=== PATIENT | male | born 1945 | race Caucasian/White ===

== ENCOUNTER 2017-01-17 14:07 | Day surgery (SDC) | payer OTHER ==
[~2017-01-17 14:07] MED LIST: ASPI325T PO; CARV3.125 PO; EFFIENT PO; ISOS30TA3 PO; OMEP20CA5 PO; ZOCO40TA PO
[2017-01-17 14:25] VITALS: BP 108/54; PULSE 64; RESP 18; TEMP 98.1; O2SAT 96
--- NOTE | 2017-01-17 16:25 | RADRPT ---
EXAM DATE/TIME: 01/17/2017 00:00 [facility] COMPARISON : No previous studies available for comparison. INDICATIONS : CONSULT FOR ENDO AAA REPAIR OBJECTIVE: Temperature: 97.9 Heart Rate: 76 Blood Pressure: 104/50 Respiratory: 18 Oximetry: 94 PNEUMONIA VACCINE: YES HISTORY OF PRESENT ILLNESS: Known abdominal aortic aneurysm, now measuring 5.5 cm on most recent imaging. PAST MEDICAL HISTORY : 1. Cardiovascular disease. 2. Arthritis. 3. Aneurysm, abdominal. PAST SURGICAL HISTORY : 1. CABG 2. Coronary artery stent. 3. KNEE SURGERY BILATERAL 4. TONSILLECTOMY SOCIAL HISTORY : Social alcohol use. Tobacco;former. ALLERGIES: 1. NKDA MEDICATIONS: 1. Coreg (Carvedilol) 3.125 mg b.i.d. 2. Prilosec (Omeprazole) 20 mg q.d. [id number] mg q.d. 4. Plavix (Clopidogrel Bisulfate) 75 mg q.d. 5. Prinivil (Lisinopril)20 mg q.d. 6. ISOSORBIDE 30 mg q.d. 7. ATORVASTATIN 40 mg q.d. IMAGING STUDIES: CTA examination of the abdomen and pelvis from [facility] imaging dated January 10, 2017 reveals a 5.5 cm infrarenal abdominal aortic aneurysm which terminates at the aortic bifurcation. The configuratio n does appear amenable to endovascular repair ASSESSMENT: The patient appears to be a good candidate for endovascular aortic aneurysm repair which now appears indicated by aneurysm size. The patient is asymptomatic with no signs of leak or rupture, as such thi s can be accomplished on an elective basis and ideally following cardiac clearance. PLAN: I discussed the case with Dr. Sher who plans to see the patient in the near future for clinical evalu ation and stress testing for risk stratification. We will plan to schedule for endovascular aortic an eurysm repair after that has been accomplished. Thank you Dr. Kay, for the opportunity to assist you in the care of this pleasant gentleman. Reza Swan MD on January 17, 2017 at 16:16 Board Certified Radiologist. This report was verified electronically.
== END 2017-01-17 15:05 | disposition home or self-care (01) ==
LOC: HROP 14:07 → HRIP 14:10 → HROP 15:05
PROVIDERS: ATTEND Radiology Body Imaging
DX: I71.3 Abdominal aortic aneurysm, ruptured (principal)

== ENCOUNTER 2017-02-28 10:47 | Inpatient (IN) | payer OTHER, MEDICARE ==
[~2017-02-28] VITALS: Ht 174 cm; Wt 95.1 kg
[2017-02-28 11:09] VITALS: BP 125/82; PULSE 67; RESP 20; TEMP 97.7; O2SAT 93
[2017-02-28] MEDS ORDERED: CLOP75TA PO (11:39)
[2017-02-28] MEDS ORDERED: ASPI81TA81 (11:40)
[2017-02-28] MEDS ORDERED: ASPI1TAB69 PO (11:40)
[2017-02-28] MEDS ORDERED: OMEP20TA PO (11:42)
[2017-02-28] MEDS ORDERED: SIMV40TA PO (11:42)
[2017-02-28] MEDS ORDERED: ISOS30TA3 PO (11:42)
[2017-02-28] MEDS ORDERED: CARV3.12 PO (11:42)
[2017-02-28] MEDS ORDERED: INSULIN HUMAN REGULAR 1,000 UNITS/10 ML VIAL SQ PRN (12:45)
[2017-02-28] MEDS ORDERED: POVIDONE IODINE 5% (ANTISEPSIS KIT) 4 APPLICATIONS EACH NARE PRN (12:45)
[2017-02-28] MEDS ORDERED: CHLORHEXIDINE GLUCONATE 2 % 1 PACK (2 CLOTHS) TOPICAL PRN (12:45)
[2017-02-28] MEDS ORDERED: METOPROLOL TARTRATE 25 MG TAB PO PRN (12:45)
[2017-02-28] MEDS ORDERED: LACTATED RINGER'S 1000 ML IV PRN (12:45)
[2017-02-28] MEDS ORDERED: SODIUM CHLORID 0.9% 500 ML IV PRN (12:45)
[2017-02-28] MEDS ORDERED: ceFAZolin 2 GM PREMIX 50 ML ONE (15:19)
[2017-02-28] MEDS ORDERED: HEPARIN SODIUM - IV 10,000 UNITS/10 ML VIAL ONE (15:30)
[2017-02-28] MEDS ORDERED: IODIXANOL 320 MG/ML 50 ML VIAL (for RAD SPEC) I-ARTERIAL ONE (16:53)
[2017-02-28] MEDS ORDERED: fentaNYL CITRATE 250 MCG/5 ML AMP ONE (17:08)
[2017-02-28] MEDS ORDERED: SODIUM CHLOR 0.9% 1000 ML INJ 1,000 ML IV SCH (17:20)
--- NOTE | 2017-02-28 17:24 | PD.RAD ---
Post Procedure Progress Note Pre Procedure Diagnosis: (1) AAA (abdominal aortic aneurysm) Post Procedure Diagnosis: (1) AAA (abdominal aortic aneurysm) Procedure Date: February 28, 2017 Supervising Radiologist: Reza Swan Assisting Radiologist: Aron Reed MD Proceduralist/Assist: Sugey Steel, RT(R), Nalini Trujillo RT(R)() Estimated blood loss: 30 ml Anesthesia: General Plan of Activity Patient to Unit: PACU Patient Condition: Good See PACS Report for procedural detail/treatment Vascular-Arterial Procedure Procedure 1 Procedure(s): Endovascular AAA Repair Access Access Site(s): Bilateral Femoral Artery Closure Site(s): Bilateral vascular closure device Reza Swan MD February 28, 2017 17:24
[2017-02-28] MEDS ORDERED: ACETAMINOPHEN 325 MG TAB PO PRN (17:30)
[2017-02-28] MEDS ORDERED: DO NOT ADM ANY ANTICOAGULANT DRUGS PRN (17:45)
--- NOTE | 2017-02-28 17:53 | PD.CONS ---
HPI Service [facility] Consult Requested By Primary Care Physician Ramakrishna Kay MD Diagnoses: Past Family Social History Allergies: Coded Allergies: No Known Allergies (Verified , 02/28/17) Physical Exam Vital Signs Vital Signs Date Time Temp Pulse Resp B/P Pulse Ox O2 Delivery O2 Flow Rate FiO2 02/28/17 17:00 96.2 55 14 137/55 99 Simple Mask 8 132/64 02/28/17 11:09 97.7 67 20 125/82 93 Laboratory Laboratory Tests Test 02/28/17 02/28/17 12:00 13:25 Blood Type B POSITIVE B POSITIVE Antibody Screen NEGATIVE Blood Bank Comment A/P Assessment and Plan dictated, [id number] labs in Sruthi Lucas February 28, 2017 17:53
--- NOTE | 2017-02-28 18:24 | RADRPT ---
EXAM DATE/TIME: 02/28/2017 15:01 [facility] COMPARISON: No previous studies available for comparison. INDICATIONS : patient with history of Abdominal aortic aneurysm. MEDICAL HISTORY : 1. AAA 2. CAD 3. OH 4. Carotid stenosis 5. HTN 6. Asthma 7. Arthritis 8. Barretts esophagus SURGICAL HISTORY : 1. CABG 2. Coronary stents 3. retina repair. ENCOUNTER: Initial ACUITY: 1 month PAIN SCORE: 0/10 FLUORO TIME: 26.3 minutes IMAGE SERIES: 8 ACCESS SITE: Bilateral Femoral artery CONTRAST: 200 cc Visipaque (iodixanol) MEDICATION(S): 1.) 2 g cefazolin (Ancef) IV 2.) 6500 units Heparin IV Vancomycin within 2 hrs of procedure, Ancef (or alternative) within 1 hr of procedure. DEVICE(S): 1.) Abdominal aorta 28 x16 x166 Endurant II abdominal trunk ipsilateral stent graft (main body) 2.) Left common iliac artery 16 x 16 x156 Endurant II contralateral iliac stent graft 3.) Bilateral common femoral artery Perclose x4 Anesthesia and pain control was provided by the Anesthesia department. PROCEDURE : 1. Ultrasound-guidance for bilateral common femoral arterial access. 2. Nonselective bilateral aortic catheterization. 3. Fluoroscopically guided endovascular aortic aneurysm repair. 4. Radiologic supervision and interpretation for Endovascular AAA repair. 5. Bilateral common femoral arteriography prior to closure device placement. 6. Bilateral common femoral arteriotomy closure. 7. selective catheterization, accessory right renal artery 8. Accessory right renal arteriography The patient was placed supine on the angiography table. General endotracheal anesthesia was administ ered by department of anesthesia representatives. The groins were prepped in sterile fashion. Full sterile technique was used, including cap, mask, sterile gloves and gown and a large sterile sheet. Hand hygiene and 2% chlorhexidine and/or betadine/alcohol prep was utilized per protocol for cutaneou s antisepsis. Angiograph of both femoral arteries was performed to evaluate for closure device place ment. 7 Azeri sheaths were placed. Stiff 0.035 inch guidewires were introduced and positioned in t he descending thoracic aorta and their position marked on the procedure table. The a 4 Azeri catheter was introduced and used to select an accessory right renal artery to the lowe r pole of the right kidney. This vessel arises from the aneurysmal portion of the aorta at about the L4 vertebral body level. The vessel was found to be quite small with a stenotic origin from the aorta and prominent proximal angulation. Blood flow provided to a very small portion of the right kidney. The vessel could not be catheterized in a stable enough fashion to allow embolization, however it is felt that this vessel will occlude spontaneously after coverage with the endograft A marking Omni flush catheter was introduced from the left and positioned in the upper abdominal aort a. From the right, the prescribed main body component was inserted and manipulated without difficult y up to the level the renal arteries. Magnification subtraction arteriography was then performed to olivia the position of the lowest renal artery. The trunk device was deployed without difficulty. The Omni Flush catheter was then brought down into the distal abdominal aorta and with aid of an angl ed Glidewire the catheter was directed through the contralateral gate region. Retrograde sheath yessenia riography was performed to olivia the gate and select a contralateral iliac component. The prescribed length contralateral iliac device was selected, inserted and deployed without difficulty. The trunk, gate connections and iliac limbs were then dilated utilizing the prescribed angioplasty ba hortencia. Completion arteriography was performed revealing excellent angiographic result with wide pat ency of the trunk and iliac limbs. Excellent preservation of flow in the renal arteries and hypogast kristen was noted. The groin sheaths were removed and arteriotomy closed with the prescribed sutures and hemostasis was augmented with brief manual compression utilizing hemostasis patches. The patient tolerated the proc edure well and was taken to the recovery area in stable condition. CONCLUSION: Uncomplicated endograft placement for abdominal aortic aneurysm. Reza Swan MD on February 28, 2017 at 18:08 Board Certified Radiologist. This report was verified electronically.
[2017-02-28 20:00] VITALS: BP 177/79; PULSE 78; PULSE 84; RESP 12; TEMP 98.2; O2SAT 94; O2SAT 95
[2017-02-28] MEDS ORDERED: cloNIDine HCL 0.1 MG TAB PO PRN (21:30)
[2017-02-28] MEDS: oxyCODONE/ACETAMINOPHEN 5 MG/325 MG TAB PO PRN (21:45)
[2017-02-28 22:00] VITALS: PULSE 62
[2017-02-28] MEDS: CARVEDILOL 3.125 MG TAB PO SCH (22:00)
[2017-02-28] MEDS ORDERED: PRAVASTATIN SOD 80 MG TAB PO SCH (22:00)
[2017-03-01] VITALS (8 sets, daily range): BP systolic 115–126; BP diastolic 30–61; PULSE 62–78; RESP 16; TEMP 97.7–98.2; O2SAT 93–94
[2017-03-01] MEDS: HYDROmorphone HCL PF 1 MG/ML VIAL IV PRN ×2 (01:52→05:37)
[2017-03-01 04:31] LABS: HEMATOCRIT 39.7 % (39.0-51.0); MEAN CELL VOLUME 94.5 FL (80.0-100.0); MEAN CORPUSCULAR HGB CONC 34.9 % (32.0-36.0); PLATELET COUNT 201 TH/MM3 (150-450); RED CELL DISTRIBUTION WIDTH 12.6 % (11.6-17.2); REVIEW FLAG FINAL; WHITE BLOOD COUNT 12.7 TH/MM3 (4.0-11.0)
[2017-03-01 04:53] LABS: BICARBONATE 24.7 MEQ/L (21.0-32.0); POTASSIUM 4.2 MEQ/L (3.5-5.1)
[2017-03-01] MEDS ORDERED: ISOSORBIDE MONONITRATE 30 MG TAB PO SCH (07:00)
--- NOTE | 2017-03-01 08:24 | MB ---
cc: ALLY HIGGINBOTHAM MD DATE OF CONSULTATION 02/28/2017 DATE OF 1945 REASON FOR CONSULTATION Medical management. HISTORY OF PRESENT ILLNESS This is a pleasant 71-year-old white male who came in for a planned stent for an abdominal triple abdominal aortic aneurysm percutaneous procedure. He is currently in the PACU post his procedure resting on a stretcher. He has being maintained under a warming blanket. He is awake and responds to verbal stimuli. History was obtained from the patient and his medical record. He currently denies any pain. No shortness of breath. No headache. No fever and states that he had been in his usual state of health before the procedure today. PAST MEDICAL HISTORY Includes: 1. Arthritis. 2. Coronary artery disease. 3. Hyperlipidemia. 4. Chest pain. 5. Hypertension. 6. Asthma. 7. Orozco's esophagus. 8. Myocardial infarction. PAST SURGICAL HISTORY 1. CABG four vessels. 2. Tonsillectomy. ALLERGIES None known. MEDICATIONS According to the medical record: 1. Effient. 2. Coreg. 3. Plavix. 4. Aspirin. 5. Omeprazole. 6. Simvastatin. 7. Isosorbide. SOCIAL HISTORY The patient is , currently lives with his . Quit smoking cigarettes in 2009. Current alcohol use. No illicit drug use. REVIEW OF SYSTEMS Limited review except for what has been mentioned in the HPI. The patient denies any nausea, vomiting. No acute pain. Mild sore throat status post intubation for the procedure. Other systems unless mentioned negative or unremarkable. PHYSICAL EXAMINATION VITAL SIGNS: Temperature 96.2 this was a 1700, pulse labile between 55 and 67, respirations 16, blood pressure 137/55, O2 sat 99 simple mask at 8 liters. GENERAL: White male looks to be his stated age resting on a stretcher under a warming blanket. He is awake, answers questions appropriately. HEENT: Atraumatic, normocephalic. UMBERTO. Mucous membranes are pink and moist. NECK: Supple. CARDIOVASCULAR: S1-S2. Heart sounds were distant but there is a possible soft systolic murmur at left sternal border. He had no edema in his extremities. His pulses were intact. LUNGS: Essentially clear anteriorly and posteriorly with no wheezes, rales or rhonchi. ABDOMEN: Soft, nontender, soft bowel sounds. MUSCULOSKELETAL: Can move his extremities with purpose. NEUROLOGIC: He is awake, alert, a fairly good historian. SKIN: H. Rivera Colon, warm and dry. LABORATORY DATA No visible diagnostic data and labs. ASSESSMENT AND PLAN 1. The patient is status post stent for abdominal AAA percutaneous route. 2. history of hypertension. 3. History of coronary artery disease. 4. History of COPD and asthma. Our plan is to medically manage any of his comorbidities. Monitor vital signs which will include temperature, pulse, respirations and blood pressure. Medications will be reconciled. We will monitor labs in the morning which will include CBC and BMP. The patient is not a diabetic, so when he is awake he will be allowed to eat. Postop orders and care including pain management will be per his admitting physician. We will continue to monitor his needs. Thank you very much for the consult. Dictated by: PAIGE Renteria MD NICO Meeks/KRISTIE /5:48 PM /8:23 AM
[2017-03-01] MEDS ORDERED: PANTOPRAZOLE SOD 20 MG DELAYED RELEASE TAB PO SCH (09:00)
[2017-03-01] MEDS: CARVEDILOL 3.125 MG TAB PO SCH (09:01)
--- NOTE | 2017-03-01 09:48 | EKG ---
Date Performed: 02/28/2017 Time Performed: 11:59:56 PTAGE: 71 years EKG: Sinus rhythm WITH FIRST DEGREE AV BLOCK INCOMPLETE RIGHT BUNDLE BRANCH BLOCK ABNORMAL ECG PREVIOUS TRACING : 05/15/2011 11.09 DOCTOR: William Amezquita Interpretating Date/Time 03/01/2017 09:47:47
[2017-03-01] MEDS: oxyCODONE/ACETAMINOPHEN 5 MG/325 MG TAB PO PRN (11:30)
--- NOTE | 2017-03-01 12:09 | RADRPT ---
EXAM DATE/TIME: 03/01/2017 10:28 [facility] COMPARISON: No previous studies available for comparison. INDICATIONS : Back pain. Status post AAA stent. ORAL CONTRAST: No oral contrast ingested. RADIATION DOSE: 15.87 CTDIvol (mGy) MEDICAL HISTORY : Hypertension. Cardiovascular disease SURGICAL HISTORY : CABG ENCOUNTER: Initial ACUITY: 2 days PAIN SCALE: 5/10 LOCATION: Bilateral Back TECHNIQUE: Volumetric scanning of the abdomen and pelvis was performed. Using automated exposure control and ad justment of the mA and/or kV according to patient size, radiation dose was kept as low as reasonably achievable to obtain optimal diagnostic quality images. FINDINGS: LOWER LUNGS: Minimal basilar atelectasis. LIVER: Homogeneous density without lesion. There is no dilation of the biliary tree. No calcified gallston es. SPLEEN: 2 PANCREAS: Within normal limits. KIDNEYS: There is cortical contrast retained in a small portion of the lower pole of the right kidney consiste nt with stasis post coverage of the accessory right renal artery with aortic endograft placement. The re is no evidence of perinephric hematoma. No mass, stone or hydronephrosis is present. ADRENAL GLANDS: Within normal limits. VASCULAR: Aortic endograft in good position. No evidence of leak or other complication BOWEL/MESENTERY: The stomach, small bowel, and colon demonstrate no acute abnormality. There is no free intraperitone al air or fluid. ABDOMINAL WALL: Within normal limits. RETROPERITONEUM: There is no lymphadenopathy. BLADDER: Air in the bladder post recent Solis catheter removal REPRODUCTIVE: Within normal limits. INGUINAL: No evidence of groin hematoma MUSCULOSKELETAL: Severe arthritic changes in the lumbar spine. CONCLUSION: Mild lung base atelectasis. Small developing cortical infarction in the lower pole of the right kidney, as expected. Severe degenerative arthritic change and disc disease of the spine. No other acute or unexpected findings. Reza Swan MD on March 01, 2017 at 11:56 Board Certified Radiologist. This report was verified electronically.
== END 2017-03-01 13:15 | disposition home or self-care (01) | DRG 269 ==
LOC: HRDT 10:47 → HRIP 10:48 → HRDT 18:52 → N03A 18:55
PROVIDERS: ADMIT Family Medicine; ATTEND Family Medicine
PROC: 04V03DZ Restriction of Abdominal Aorta with Intraluminal Device, Percutaneous Approach (ICD-10-PCS; principal; 2017-02-28)
DX: I71.4 Abdominal aortic aneurysm, without rupture (principal); I25.810 Atherosclerosis of coronary artery bypass graft(s) without angina pectoris; J44.9 Chronic obstructive pulmonary disease, unspecified; I10 Essential (primary) hypertension; E78.5 Hyperlipidemia, unspecified; Z95.1 Presence of aortocoronary bypass graft; I25.2 Old myocardial infarction; J45.909 Unspecified asthma, uncomplicated; K22.70 Barrett's esophagus without dysplasia
CPT/HCPCS: 34802; 36200; 74176; 75952; 76937; 80048; 85027; 86850; 86900; 86901; 93005; C1725; C1751; C1760; C1769; C1887; C1894; J0690; J1170; J1644; J3010; J7030; Q9967

== ENCOUNTER 2017-03-09 13:05 | Day surgery (SDC) | payer OTHER ==
[~2017-03-09 13:05] MED LIST changes: +ASPI1TAB69 PO; -ASPI325T PO; +CARV3.12 PO; -CARV3.125 PO; +CLOP75TA PO; -OMEP20CA5 PO; +OMEP20TA PO; +SIMV40TA PO; -ZOCO40TA PO
--- NOTE | 2017-03-10 08:40 | RADRPT ---
EXAM DATE/TIME: 03/09/2017 00:00 [facility] COMPARISON : INDICATIONS : F/U AAA Repair OBJECTIVE: Temperature: 96.7 Heart Rate: 68 Blood Pressure: 121/62 Respiratory: 20 Oximetry: 96 PNEUMONIA VACCINE: HISTORY OF PRESENT ILLNESS: 71 year-old post endovascular stent graft placement for abdominal aortic aneurysm. Patient complains of minimal, expected discomfort in the groin access regions but otherwise is doing very well PAST MEDICAL HISTORY : 1. Aneurysm, abdominal. 2. Hypertension.CABG 3. Arthritis. PAST SURGICAL HISTORY : 1. AAA REPAIR 2. CABGCORONARY STENTS SOCIAL HISTORY : Social alcohol use. Tobacco;former. ALLERGIES: 1. NKDA MEDICATIONS: 1. [id number] mg q.d. Plavix (Glopidogrel Bisulfate) 75 mg q.d. PHYSICAL EXAMINATION: Patient in no acute distress. Access sites are clean and dry without swelling or erythema IMAGING STUDIES: Patient's postprocedural CT scan and the intraprocedural images from stent graft placement were revie wed with the patient and his . ASSESSMENT: Patient doing very well post endovascular stent graft placement. No immediate complications PLAN: Followup stent graft protocol CTA of the abdomen in 3-6 months TIME SPENT: 20 minutes Aron Reed MD on March 10, 2017 at 8:35 Board Certified Radiologist. This report was verified electronically.
== END 2017-03-09 13:15 | disposition home or self-care (01) ==
LOC: HROP 13:05 → HRIP 13:07 → HROP 13:15
PROVIDERS: ATTEND Radiology Body Imaging
DX: I71.3 Abdominal aortic aneurysm, ruptured (principal); I10 Essential (primary) hypertension; Z95.1 Presence of aortocoronary bypass graft